=== PATIENT | male | born 1985 | race Two or more races ===

== ENCOUNTER 2022-06-17 08:29 | Inpatient (IN) | payer MEDICAID ==
[~2022-06-17] VITALS: Ht 172.7 cm; Wt 68.0 kg
[2022-06-17] MEDS ORDERED: LET TOPICAL SOLN 5 ML TOP ONE (09:45)
[2022-06-17] MEDS ORDERED: SODIUM CHLORIDE 0.9% 1,000 ML IV ONE (12:30)
[2022-06-17] MEDS ORDERED: ceFAZolin 1GM/50ML 50 ML IV ONE (12:30)
[2022-06-17] MEDS ORDERED: DexAMETHasone SOD PHOS 4 MG/1ML SDV INJ ONE (12:56)
[2022-06-17] MEDS ORDERED: LIDOCAINE W/ EPINEPHRINE 2% INJ 20ML VIAL ONE (12:56)
[2022-06-17] MEDS ORDERED: BUPIVACAINE 0.5% P/F INJ 10 ML VIAL ONE (12:56)
[2022-06-17 12:57] LABS: Basophils # (auto) 0.1 10 ^3/uL (0-0.2); Basophils % (auto) 1.3 % (0.0-2.0); Eosinophils # (auto) 0.2 10 ^3/uL (0-0.8); Eosinophils % (auto) 5.2 % (0.0-7.0); Hematocrit 43.9 % (41.0-53.0); Hemoglobin 14.3 g/dL (13.5-17.5); Lymphocytes % (auto) 46.4 % (10.0-50.0); Mean Corpuscular Hemoglobin 29.4 pg (28.0-32.0); Mean Corpuscular Hgb Conc. 32.6 g/dL (32.0-36.0); Mean Corpuscular Volume 90.3 fL (80.0-100.0); Monocytes # (auto) 0.3 10 ^3/uL (0-1.3); Monocytes % (auto) 7.4 % (0.0-12.0); Neutrophils # (auto) 1.7 10 ^3/uL (1.6-8.6); Neutrophils % (auto) 39.7 % (37.0-80.0); Red Blood Cells 4.86 10^6/uL (4.5-5.90); Red Cell Distribution Width 14.6 % (11.8-14.3); White Blood Cell 4.2 10^3/uL (4.4-10.8)
[2022-06-17] MEDS ORDERED: LIDOCAINE 2% (LOCAL ANESTH.) PF 5ml SDV ONE (13:06)
[2022-06-17 13:09] LABS: BUN/Creatinine Ratio 15.5; Calcium 9.4 mg/dL (8.5-10.1); INR 0.99 (0.9-1.15)
[2022-06-17] MEDS ORDERED: DOCUSATE SOD 100 MG CAP PO PRN (13:15)
[2022-06-17] MEDS ORDERED: MORPHINE SULFATE INJ 2 MG/ml SYRG IV PRN (13:15)
[2022-06-17] MEDS ORDERED: ONDANSETRON HCL 4 MG/2 ML VIAL IV PRN (13:15)
[2022-06-17] MEDS ORDERED: HYDROcodone-ACET 5/325MG TAB PO PRN (13:15)
[2022-06-17] MEDS ORDERED: TETANUS-DIPTH-ACEL PERTUSSIS 0.5ML SYR Tdap IM ONE (13:15)
[2022-06-17] MEDS: SODIUM CHLORIDE 0.9% 1,000 ML IV SCH ×2 (13:15→21:35)
[2022-06-17] MEDS ORDERED: ceFAZolin 1GM/50ML 100 ML IV ONE (17:03)
[2022-06-17] MEDS ORDERED: DexAMETHasone SOD PHOS 10MG/1ML VIAL INJ ONE (17:51)
[2022-06-17] MEDS ORDERED: METOCLOPRAMIDE HCL 5MG/ml INJ 2ml VIAL ONE (17:52)
[2022-06-17] MEDS ORDERED: ONDANSETRON HCL 4 MG/2 ML VIAL ONE (17:52)
[2022-06-17] MEDS ORDERED: KETOROLAC TROMETH 30 MG/ML 1ML VIAL ONE (17:52)
[2022-06-17] MEDS: CLINDAMYCIN 600MG IV 50 ML IV SCH ×2 (21:15→22:00)
[2022-06-17 22:05] VITALS: BP 140/85
[2022-06-18 04:48] VITALS: BP 104/69
[2022-06-18] MEDS: SODIUM CHLORIDE 0.9% 1,000 ML IV SCH ×2 (05:55→14:08)
[2022-06-18] MEDS: CLINDAMYCIN 600MG IV 50 ML IV SCH ×3 (06:04→22:00)
[2022-06-18 06:26] LABS: Basophils # (auto) 0 10 ^3/uL (0-0.2); Basophils % (auto) 0.4 % (0.0-2.0); Eosinophils # (auto) 0 10 ^3/uL (0-0.8); Hematocrit 40.3 % (41.0-53.0); Hemoglobin 13.4 g/dL (13.5-17.5); Lymphocytes # (auto) 1.1 10 ^3/uL (0.4-5.4); Lymphocytes % (auto) 18.9 % (10.0-50.0); Mean Corpuscular Hemoglobin 29.9 pg (28.0-32.0); Mean Corpuscular Hgb Conc. 33.2 g/dL (32.0-36.0); Mean Corpuscular Volume 90.1 fL (80.0-100.0); Monocytes # (auto) 0.2 10 ^3/uL (0-1.3); Neutrophils # (auto) 4.5 10 ^3/uL (1.6-8.6); Neutrophils % (auto) 77.7 % (37.0-80.0); Nucleated Red Blood Cells % 0.1 %; Red Blood Cells 4.47 10^6/uL (4.5-5.90); Red Cell Distribution Width 14.4 % (11.8-14.3); White Blood Cell 5.9 10^3/uL (4.4-10.8)
[2022-06-18 06:42] LABS: Albumin 3.2 g/dL (3.4-5.0); Potassium 4.5 mmol/L (3.5-5.1)
[2022-06-18 06:46] LABS: BUN/Creatinine Ratio 15.7; Bilirubin, Total 0.8 mg/dL (0.2-1.0); Total Protein 7.1 g/dL (6.4-8.2)
[2022-06-18 09:00] VITALS: BP 116/75
[2022-06-18 12:50] VITALS: BP 123/69
[2022-06-18 16:46] VITALS: BP 119/64
[2022-06-18 18:24] LABS: Urine Bacteria NONE SEEN /hpf (None Seen); Urine Blood Negative /uL (Negative); Urine Specific Gravity 1.029 (1.001-1.035); Urine WBC 5 /hpf (0 - 3)
[2022-06-18 18:28] LABS: Alcohol, Urine < 3.0 mg/dL (0-10); Amphetamine Screen, Urine POSITIVE (NEGATIVE); Barbiturate Scree,Urine NEGATIVE (NEGATIVE); Benzodiazephine Screen, Urine NEGATIVE (NEGATIVE); Cannabinoid Screen, Urine NEGATIVE (NEGATIVE); Cocaine Screen, Urine NEGATIVE (NEGATIVE); Opiate Scree,Urine NEGATIVE (NEGATIVE); Phencyclidine Screen, Urine NEGATIVE (NEGATIVE)
[2022-06-18 21:30] VITALS: BP 118/74
[2022-06-19 04:25] LABS: Basophils # (auto) 0.1 10 ^3/uL (0-0.2); Eosinophils # (auto) 0.1 10 ^3/uL (0-0.8); Eosinophils % (auto) 1.9 % (0.0-7.0); Hemoglobin 12.4 g/dL (13.5-17.5); Lymphocytes # (auto) 2.3 10 ^3/uL (0.4-5.4); Lymphocytes % (auto) 41.1 % (10.0-50.0); Mean Corpuscular Hemoglobin 30.9 pg (28.0-32.0); Mean Corpuscular Hgb Conc. 34.5 g/dL (32.0-36.0); Mean Corpuscular Volume 89.6 fL (80.0-100.0); Monocytes # (auto) 0.4 10 ^3/uL (0-1.3); Monocytes % (auto) 7.8 % (0.0-12.0); Neutrophils # (auto) 2.7 10 ^3/uL (1.6-8.6); Neutrophils % (auto) 48.2 % (37.0-80.0); Nucleated Red Blood Cells % 0.1 %; Red Blood Cells 4.02 10^6/uL (4.5-5.90); Red Cell Distribution Width 14.4 % (11.8-14.3); White Blood Cell 5.7 10^3/uL (4.4-10.8)
[2022-06-19 04:54] LABS: Potassium 3.8 mmol/L (3.5-5.1)
[2022-06-19 04:59] LABS: Albumin 2.9 g/dL (3.4-5.0); Calcium 8.6 mg/dL (8.5-10.1)
[2022-06-19 05:00] VITALS: BP 114/78
[2022-06-19 05:02] LABS: Bilirubin, Total 0.7 mg/dL (0.2-1.0)
[2022-06-19] MEDS: CLINDAMYCIN 600MG IV 50 ML IV SCH ×2 (06:45→14:00)
[2022-06-19 08:32] VITALS: BP 126/81
[2022-06-19] MEDS ORDERED: CLIN-203 PO (11:59)
[2022-06-19 12:56] VITALS: BP 99/64
[2022-06-19 13:10] VITALS: BP 107/69
== END 2022-06-19 16:00 | disposition home or self-care (01) | DRG 364 ==
LOC: ER 08:29 → OVERFLOW 13:08 → CENTRAL 19:05
PROVIDERS: ADMIT Nurse Practitioner Family; ATTEND Internal Medicine
PROC: 0PC Upper Bones, Extirpation (ICD-10-PCS; principal; 2022-06-18)
PROC: 0KBC0ZZ Excision of Right Hand Muscle, Open Approach (ICD-10-PCS; 2022-06-18)
DX: L02.511 Cutaneous abscess of right hand (principal); F17.200 Nicotine dependence, unspecified, uncomplicated; J45.909 Unspecified asthma, uncomplicated; Z71.6 Tobacco abuse counseling; S60.412A Abrasion of right middle finger, initial encounter; Z20.822 Contact with and (suspected) exposure to COVID-19; X58.XXXA Exposure to other specified factors, initial encounter; Y93.89 Activity, other specified; Y92.89 Other specified places as the place of occurrence of the external cause; Y99.8 Other external cause status
CPT/HCPCS: 36415; 73120; 73140; 80048; 80053; 80307; 81001; 83036; 84443; 85025; 85610; 87070; 87075; 87205; 87426; 90715; 96360; G0378; J0690; J1100; J1885; J2001; J2405; J3490